=== PATIENT | male | born 1985 | race Caucasian/White ===

== ENCOUNTER 2016-08-05 15:48 | Emergency (ER) | payer OTHER ==
[~2016-08-05] VITALS: Ht 170.2 cm; Wt 63.2 kg
[~2016-08-05 15:48] MED LIST: ADVAIR 100/501 DISK IH; ADVAIR HFA 45-218 GM IH; ATARAX,VISTARIL25 MG PO; AZITHROMYCIN250 MG1 PO; COGENTIN0.5 MG PO; DEPAKOTE500 MG PO; DOXYCYCLINE HY100 MG PO; Depakote PO; EPIPEN ADU0.3 MG/0.3 IM; FLEXERIL10 MG PO; GEODON20 MG PO; GEODON60 MG PO; HYCODAN SYRUP480 ML PO; IBUPROFEN600 MG PO; KEFLEX500 MG PO; LISINOPRIL20 MG PO; MOTRIN600 MG PO; NEXIUM20 MG PO; NICOTINE PATCH1 EAC2 TD; PERCOCET 5/31 TABLET PO; PREDNISONE10 MG PO; PREVACID30 MG PO; PRINIVIL40 MG PO; Pepcid PO; Proventil,Ventolin H IH; STRATTERA40 MG PO; Singulair PO; TRAMADOL HCL50 MG PO; ULTRAM50 MG PO; VISTARIL PO; XOPENEX HF200 INHALA IH; Zestril,Prinivil PO
[2016-08-05] MEDS ORDERED: ZOFRAN ODT4 MG PO (17:00)
[2016-08-05] MEDS ORDERED: NAPROSYN500 MG PO (17:00)
[2016-08-05 17:16] VITALS: BP 129/81
== END 2016-08-05 17:17 | disposition home or self-care (01) ==
LOC: EME 15:48
DX: S09.90XA Unspecified injury of head, initial encounter (principal); M54.2 Cervicalgia; W50.0XXA Accidental hit or strike by another person, initial encounter; Y93.67 Activity, basketball; Z87.820 Personal history of traumatic brain injury; J45.909 Unspecified asthma, uncomplicated; F17.200 Nicotine dependence, unspecified, uncomplicated
CPT/HCPCS: 99281; 99283